=== PATIENT | male | born 1960 | race Caucasian/White ===

== ENCOUNTER 2018-02-14 01:23 | Emergency (ER) | payer OTHER ==
[2018-02-14] MEDS: HYDROCODONE/APAP (5/325) TAB PO (02:07)
== END 2018-02-14 02:17 | disposition home or self-care (01) ==
LOC: E/R 01:23
DX: M54.6 Pain in thoracic spine (principal); I10 Essential (primary) hypertension; F17.210 Nicotine dependence, cigarettes, uncomplicated
CPT/HCPCS: 99283; Z7502